=== PATIENT | female | born 1940 | race Caucasian/White ===

== ENCOUNTER 2019-06-30 00:49 | Emergency (ER) | payer OTHER, MEDICAID, SELFPAY ==
[~2019-06-30] VITALS: Ht 167.6 cm; Wt 54.4 kg
[2019-06-30 00:53] VITALS: BP_SYST 150
[2019-06-30 03:54] LABS: ANION GAP 7 (5-15); CALCIUM 8.3 mg/dL (8.4-11.0); CHLORIDE 103 mmol/L (98-107); CREATININE 0.81 mg/dL (0.55-1.30); GLUCOSE 81 mg/dL (70-99); POTASSIUM 3.6 mmol/L (3.5-5.1); SODIUM SERUM 140 mmol/L (136-145); UREA NITROGEN, BLOOD 17 mg/dL (8-21)
[2019-06-30 03:59] LABS: ALANINE AMINOTRANSFERASE 16 U/L (12-78); ALBUMIN 2.4 g/dL (3.4-4.8); ASPARTATE AMINOTRANSFERASE 13 U/L (10-37); TOTAL BILIRUBIN 0.5 mg/dL (0.0-1.0)
[2019-06-30] MEDS ORDERED: IOHEXOL 350 mgI/mL, 150 ML INFUS..BTL IV ONE (04:34)
[2019-06-30 04:45] VITALS: BP_SYST 147
== END 2019-06-30 04:45 | disposition home or self-care (01) ==
LOC: SED 00:49 → EEVIPCON 00:49 → SED 04:45
DX: R05 Cough (principal); R79.1 Abnormal coagulation profile; R94.31 Abnormal electrocardiogram [ECG] [EKG]; U07.1 COVID-19; Z88.6 Allergy status to analgesic agent; Z88.8 Allergy status to other drugs, medicaments and biological substances
CPT/HCPCS: 36415; 80053; 85379; 86710; 93005; 99285; Q9967; U0002